=== PATIENT | male | born 1980 | race Caucasian/White ===

== ENCOUNTER 2016-07-08 18:27 | Inpatient (IN) | payer BC, OTHER ==
[~2016-07-08] VITALS: Ht 177.8 cm; Wt 108.9 kg
--- NOTE | ~2016-07-08 | EKG ---
[address] [address] ELECTROCARDIOGRAM REPORT Name: PLACIDO NASCIMENTO Room #: 208-P ADM IN M.R.#: [id number] Admission: 07/08/16 Attend Phys: Kuldeep Davis MD, Discharge: Date of : 80 Report #: [id number] THIS REPORT FOR: //name// [facility] Test Date: 2016-07-09 Test Time: 02:22:15 Pat Name: PLACIDO NASCIMENTO Department: Room: 208 P Gender: M Sports Centre Manager: TK : 1980 Requested By: Kuldeep Davis Order Number: [id number] MD: Mikel Argueta Measurements Intervals [place] Rate: 77 P: 25 [place]: 162 QRS: 22 QRSD: 90 T: 10 QT: 379 QTc: 429 Interpretive Statements Sinus rhythm No significant abnormality Compared to ECG 07/08/2016 21:42:14 Sinus tachycardia no longer present Electronically Signed On 07-09-2016 8:02:45 SAMPLE PASTER by Mikel Argueta [email or web address] <ELECTRONICALLY SIGNED> By: Mikel Argueta MD, [facility] 07/09/16801 1 1 Mikel Argueta MD, FAC /EPI
--- NOTE | ~2016-07-08 | D ---
[facility] [place] [address] DISCHARGE SUMMARY Name: IPLYPLACIDO SELLERS Room #: 208-P [facility] IN M.R.#: [id number] Admission: 07/08/16 Attend Phys: Kuldeep Davis MD, Discharge: 07/10/16 Date of : 80 Report #: [id number] THIS REPORT FOR: //name// CC: NORMA physician/PCP Kuldeep Davis [facility] COURSE: The patient is a 36-year-old male who came in with sudden onset of chest pain, intermittent for the day of admission. Very intense at times, with some very subtle, but no EKG changes, but a troponin was 4. Subsequently taken to the catheterization lab emergently that night, was found to have what appears to be a spontaneous clot in his proximal LAD. I treated that with initial angiography. The clot had dislodged and went to the mid LAD. I then did multiple mechanical thrombectomy throughout the LAD, even extending down to the apex as the clot propagated. Eventually with clot extraction and IC verapamil, I was able to restore completely normal flow into this what appears to be a normal vessel. It wrapped around LAD. The circumflex was nondominant, large and free of disease and the dominant right was large and free of disease. LV function was preserved. He has done well. Repeat troponin was 8. The hypercoag panel was pending. He has been seen by hematology. Obviously, we were very concerned about a clotting disorder. He was initially treated with heparin and Integrilin and now on an aspirin and Lovenox, converting to Coumadin. He may eventually be a candidate for a novel agent depending on the findings, no anticardiolipin antibody abnormality, we could even consider a novel agent, but we will not have results of the hypercoag panel for a week. Dr. William has ordered CT scans looking for any occult malignancy, although we certainly do not have the history for this. We will await those and then discharge later today on Lovenox and Coumadin until he is therapeutic overlapping for 2 days. DISCHARGE INSTRUCTIONS: Atorvastatin 40, Toprol 25, lisinopril 10, enoxaparin 100 b.i.d. until he is therapeutic for 48 hours with INR greater than 2 and Protonix 40. No lifting for 48 hours. No lying in tub, Jacuzzi or Wol[place] for a week. He is to follow up in my office in 6-8 weeks. He does not have a primary care physician and we will give him some recommendations. DISCHARGE DIAGNOSES: 1. Myocardial infarction secondary to a spontaneous left anterior descending thrombus formation. 2. Hypercholesterolemia. 3. History of borderline hypertension, untreated. 4. Ruling out hypercoagulation disorder. Further recommendations after Dr. William reviews the CT scans. If no findings, we will discharge to home as noted above. He will call with any issues or recurrent pain. He will avoid any sort of estrogen replacement or tobacco. He has been on none of this. He denies any anabolic steroid use. He denies any illicit drug use. [address] [address] DISCHARGE SUMMARY Name: PILYPLACIDO SELLERS Room #: 208-P [facility] IN M.R.#: [id number] Admission: 07/08/16 Attend Phys: Kuldeep Davis MD, Discharge: 07/10/16 Date of : 80 Report #: [id number] Low-fat, low-sodium, cholesterol diet. Regular aerobic activity. <ELECTRONICALLY SIGNED> By: Kuldeep Davis MD, FACC 07/11/16 1233 1000 1250 Kuldeep Davis MD, FACC /nt
--- NOTE | ~2016-07-08 | CATHLAB ---
[facility] [address] [place] [address] INVASIVE PROCEDURE REPORT Name: IPLYPLACIDO Room #: 208-P [facility] IN M.R.#: [id number] Admission: 07/08/16 Attend Phys: Kuldeep Davis, Discharge: 07/10/16 Date of : 80 Date of Service: 07/09/16 0004 Report #: [id number] THIS REPORT FOR: //name// CC: NORMA physician/PCP Kuldeep Davis PROCEDURES: Coronary angiography, left ventriculography, thrombectomy removal of the LAD mid and distal vessel. DESCRIPTION OF PROCEDURE: The patient brought to the catheterization lab with recurrent severe chest pain and pressure, with subtle EKG changes and troponin of 4. Despite heparin, nitroglycerin, morphine, still having recurrent pain, without significant current of injury. Difficulty with the arch, so utilized a JR4 to cross and exchanges were made over the wire. The right coronary artery is widely patent. FL4 for the left coronary system. Multiple views and obliques were taken, initially not clear evidence of a clot, but then more with injections. There was evidence of a large proximal LAD thrombus and it initially and intermittently became somewhat flow limiting. Another injection ensued and this clot spontaneously appeared to propagate to the mid distal LAD with total flush occlusion. I then utilized a 4.0 EBU guide and additional heparin and Integrilin bolus Integrilin drip. I then placed a 6-[address] down to the mid LAD and multiple passes were made, filling 2 tubes, with marked improvement in this flow within only the distal. This wraparound LAD was patent to just at the apex where it wrapped. I then elected to proceed further with a thrombectomy device and returned with the device after it had been removed and did further manual thrombectomy aspiration at the apex of this LAD. I then utilized IC verapamil prior and after this procedure. I was able to completely restore flow into the entire LAD as it wrapped around, without evidence of any residual thrombus. I did a pigtail for the ventriculogram and supravalvular aortogram. It looks like mild aortic dilatation, but I do not see any evidence of disruption or other clot or etiology of the clot. The patient had resolution of chest pain and some subtle EKG changes. A Mynx closure was utilized, without hematoma formation. IV Lopressor was also given initially. The patient is transferred back to CCU in guarded condition, but improved. Improvement in the EKG is noted. HEMODYNAMICS: Aortic 138/100, LV 117/12. IMPRESSION: 1. Successful aborted anterior infarct with evidence of large proximal left anterior descending thrombus, which had propagated during angiography to a mid left anterior descending occlusion. Successfully mechanically thrombectomized and then further thrombectomy at the apex, where there was further distal clot. There was gradual removal of significant clot formation in the filter. The circumflex is widely patent. The right coronary artery is a large, dominant vessel and widely patent. Normal left ventricular size. Left ventricular function subtle. Anterior wall ejection fraction is 50%. [facility] [address] [place] [address] INVASIVE PROCEDURE REPORT Name: PLACIDO NASCIMENTO Room #: 208-P DIS IN M.R.#: [id number] Admission: 07/08/16 Attend Phys: Kuldeep Davis, Discharge: 07/10/16 Date of : 80 Date of Service: 07/09/16 0004 Report #: [id number] 2. Supravalvular aortogram reveals aortic insufficiency, but this may be catheter induced. Mild aortic root dilatation, but no evidence of any interval disruption. RECOMMENDATIONS AND PLAN: We will continue with nitroglycerin and Integrilin drips, to the CCU in guarded condition. We will send laboratory work, hypercoag panel in the a.m. Continue aggressive statin therapy and will need hematology consult with Dr. William in the morning. We will need to give consideration to long-term anticoagulation, either warfarin or possibly direct thrombin inhibitor. Pradaxa could be an option or the factor X inhibitors. We will have further consultation with hematology, hypercoag panel. Obviously, no clear indication for why he would develop a spontaneous clot in the large LAD, which otherwise has no apparent disease. There were no inciting medications, drugs, alcohol, etc. We will have further recommendations per his clinical course. <ELECTRONICALLY SIGNED> By: Kuldeep Davis MD, [facility] 07/11/16 1233 0004 0157 Kuldeep Davis MD, FACC /nt
--- NOTE | ~2016-07-08 | EKG ---
[address] [address] ELECTROCARDIOGRAM REPORT Name: PLACIDO NASCIMENTO Room #: 208-P ADM IN M.R.#: [id number] Admission: 07/08/16 Attend Phys: Kuldeep Davis MD, Discharge: Date of : 80 Report #: [id number] THIS REPORT FOR: //name// [facility] Test Date: 2016-07-08 Test Time: 22:08:10 Pat Name: PLACIDO NASCIMENTO Department: Room: 208 P Gender: M Clinical Resource Director: TK : 1980 Requested By: Kuldeep Davis Order Number: [id number] MD: Mikel Argueta Measurements Intervals [place] Rate: 77 P: 33 PA: 162 QRS: 9 QRSD: 88 T: 5 QT: 385 QTc: 436 Interpretive Statements Sinus rhythm No significant abnormality Compared to ECG 07/08/2016 18:30:26 Sinus tachycardia no longer present Electronically Signed On 07-09-2016 8:02:23 CREW MEMBER by Mikel Argueta [email or web address] <ELECTRONICALLY SIGNED> By: Mikel Argueta MD, [facility] 07/09/16801 07 07 Mikel Argueta MD, [facility] /EPI
--- NOTE | ~2016-07-08 | HC ---
[facility] [place] [address] CONSULTATION Name: PILYPLACIDO SELLERS Room #: 208-P ADM IN M.R.#: [id number] Admission: 07/08/16 Attend Phys: Kuldeep Davis MD, Discharge: Date of : 80 Report #: [id number] THIS REPORT FOR: //name// CC: NORMA physician/PCP Kuldeep Davis MD [facility] DATE OF SERVICE: 07/09/2016 REASON FOR CONSULTATION: Unprovoked thrombus in left anterior descending coronary artery. 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 In subsequent evaluation in the hospital, he was found on coronary angiogram to have fairly normal coronary arteries but did have a thrombus which has not been lysed and had an infarct aborted. The patient previous to that had not been using any hormones, any street drugs or had not had any unusual infection or trauma, weight change, diarrhea or constipation. He does mention that maybe several months ago he was at a clinic related to his work and they perhaps found his thyroid is a little bit abnormal, did some other tests and maybe suggested there is something autoimmune going on, though I may not be understanding this correctly and they suggested that he follows up with someone in 6 months. His will bring in these labs. PAST MEDICAL HISTORY: Notable for borderline hypertension and also an appendectomy. FAMILY HISTORY: There is some premature coronary artery disease on the mother and father's side, but it sounds like it is atherosclerotic not clots. No young age diagnosis of other cancers or strokes or DVTs or pulmonary emboli. SOCIAL HISTORY: He is to his , Nia; they have I think she said a 7-month-old and a 2 year, but there may be a 3-month-old and a 7-month-old. Minimal alcohol, no tobacco, no street drugs. Also note here that his other studies did have a fairly normal CBC and BMP. We would need to check LFTs, but note a hypercoag panel is pending. We will add a beta-2 glycoprotein and immunofixation, CAT scans. MEDICATIONS: Here in the hospital currently include metoprolol 25 daily, Lovenox 100 b.i.d., docusate 100 b.i.d., atorvastatin 80 mg daily, aspirin 325 daily, zolpidem 5 at bedtime p.r.n., p.r.n. Zofran, p.r.n. hydrocodone, p.r.n. Tylenol, p.r.n. nitroglycerin. He also will be finishing his Integrilin in the near future. [address] [address] CONSULTATION Name: PLACIDO NASCIMENTO Room #: 208-P [facility] IN M.R.#: [id number] Admission: 07/08/16 Attend Phys: Kuldeep Davis MD, Discharge: Date of : 80 Report #: [id number] Baseline coags here were normal. PHYSICAL EXAMINATION: GENERAL: The patient appears his stated age. VITAL SIGNS: Height is 5 feet 10 inches which is 177.8 cm, weight 240 pounds which is 108.86 kg, blood pressure is 127/90, O2 sat 95, respirations 16, pulse 85, temperature 98.1. MOOD: He is alert and pleasant, slightly quiet despite all the attention, multiple family members in the room. NEUROLOGIC: Face is symmetrical and moving all extremities. Speech pattern is normal. Oropharynx clear. LUNGS: Clear with symmetric unlabored respiration. HEART: Regular rate. LYMPHATICS: No enlarged lymph nodes in the supraclavicular, cervical, axillary or inguinal region. ABDOMEN: Soft, slightly obese. No organomegaly. Nontender. EXTREMITIES: Without clubbing, cyanosis or edema. DISCUSSION: Discussed with family, , mother and most of his family members that we are seeing and trying to look for things that may have contributed to his blood clot in his heart. We talked about doing a CAT scan of the chest, abdomen and pelvis to look for occult malignancy. We also talked about the rheumatologic tests that are pending. We will also add a beta-2 glycoprotein as well as immunofixation. We said that some of these tests may require repeat testing and see if they are persistent. Some of them also may be hereditary and other family members might need to be checked. We also talked about choice of anticoagulant at this time since this might be a lupus anticoagulant. I would suggest Lovenox and then something like Coumadin as compared to a novel oral anticoagulant. If on the other hand over time these hypercoaguable tests come back negative, we might be able to consider novel oral anticoagulant. With regards to duration, I would probably consider a fairly custodial at least for a year and maybe even consider lifelong at this point given the severe nature of a clot in this location and I am aware that even if this clot dissipates or resolves, there may be some coronary abnormality that might predispose and they have a clot here. We also had talked with Dr. Davis about really not a VSD and ASD and he has an echocardiogram planned later today. ASSESSMENT AND PLAN: 1. Coronary thrombus in the left anterior descending, unprovoked. Await blood tests and CAT scan and echocardiogram. I agree with use of Lovenox after Integrilin and also use of Coumadin. 2. Thyroid abnormality question. will bring in labs so we can see if this warrants further investigation. 3. Hypertension. Metoprolol and other medications. [facility] [address] [place] [address] CONSULTATION Name: PILYPLACIDO Room #: 208-P [facility] IN M.R.#: [id number] Admission: 07/08/16 Attend Phys: Kuldeep Davis MD, Discharge: Date of : 80 Report #: [id number] 4. History of premature coronary artery disease and others. We will defer statins and other drugs to cardiology. We will follow with you. <ELECTRONICALLY SIGNED> By: Jj William MD 07/09/16 2108 1034 1109 Jj William MD /nt
--- NOTE | ~2016-07-08 | 2DMMODE ---
[facility] [place] [address] 2 D/M-MODE ECHOCARDIOGRAM Name: PLACIDO NASCIMENTO Room #: 208-P [facility] IN .R.#: [id number] Admission: 07/08/16 Attend Phys: Kuldeep Davis, Discharge: Date of : 80 Date of Service: 07/09/16 1433 Report #: [id number] THIS REPORT FOR: //name// Transthoracic Echocardiography Ordering physician: Lurdes Figueredo Referring physician: Colorist: MARILEE Cam Indications/History: HTN, Chest pain, HLP. BP: 121 / HR: 74bpm Height: 70in Weight: 239.5lb 81 Study data: M-mode, complete 2D, complete spectral Doppler, and color Doppler. Location: Echo laboratory. Routine. Image quality was good. 2D measurements Normal Normal LVID ED 52.3mm 36-57 IVS ED 10.4mm 6-11 LVID ES 33.9mm 23-40 LVPW ED 10.1mm 6-11 LA volume 27ml/m2 16-28 AoRoot diam 31.1mm 21-37 index ED LVOT diameter 23mm 18-23 Findings: Left ventricle: The cavity size was normal. Wall thickness was normal. Systolic function was normal. The estimated ejection fraction was in the range of 55% to 60%. Wall motion was normal. Right ventricle: The cavity size was normal. Systolic function was normal. Right atrium: The atrium was normal in size. Left atrium: The atrium was normal in size. Volume index: 27ml/m2 (S). Aortic valve: Structurally normal valve. Trileaflet. Doppler: There was no stenosis. No regurgitation. Peak velocity: 144.9cm/s (S). [facility] [address] [place] [address] 2 D/M-MODE ECHOCARDIOGRAM Name: PLACIDO NASCIMENTO Room #: 208-P [facility] IN M.R.#: [id number] Admission: 07/08/16 Attend Phys: Kuldeep Davis, Discharge: Date of : 80 Date of Service: 07/09/16 1433 Report #: [id number] Mitral valve: Structurally normal valve. Doppler: There was no evidence for stenosis. No regurgitation. Peak E-wave velocity: 85cm/s. Peak gradient: 2.9mm Hg (D). Peak A-wave velocity: 70.1cm/s. Tricuspid valve: Structurally normal valve. Doppler: There was no evidence for stenosis. No regurgitation. Regurgitant peak velocity: 284.8cm/s. Peak RV-RA gradient: 32mm Hg (S). Pulmonic valve: Structurally normal valve. Doppler: There was no evidence for stenosis. No regurgitation. Pericardium: There was no pericardial effusion. Aorta: Aortic root: The aortic root was normal in size. Pulmonary artery: Pressure could not be reliably determined due to minimal or absent tricuspid insufficiency jet, but pulmonary hypertension was not suggested. Diastolic function: Normal diastolic function. Systemic veins: Inferior vena cava: The vessel was normal in size; the respirophasic diameter changes were in the normal range (= 50%). Conclusions 1. Left ventricle: Systolic function was normal. The estimated ejection fraction was in the range of 55% to 60%. Wall motion was normal. Normal diastolic function. 2. Aortic valve: Structurally normal valve. Trileaflet. There was no stenosis. No regurgitation. 3. Mitral valve: Structurally normal valve. No regurgitation. 4. Pericardium, extracardiac: There was no pericardial effusion. <ELECTRONICALLY SIGNED> By: Mikel Argueta MD, [facility] 07/09/16 1858 1433 57 Mikel Argueta MD, [facility] /[email or web address]
--- NOTE | ~2016-07-08 | EKG ---
[place] [address] [facility] [place] [address] ELECTROCARDIOGRAM REPORT Name: PLACIDO NASCIMENTO Room #: 208-P ADM IN M.R.#: [id number] Admission: 07/08/16 Attend Phys: Kuldeep Davis MD, Discharge: Date of : 80 Report #: [id number] THIS REPORT FOR: //name// [facility] ED Test Date: 2016-07-08 Test Time: 19:21:18 Pat Name: PLACIDO NASCIMENTO Department: Room: 208 Gender: M Implementation Advisor: Branden KWAN : 1980 Requested By: Clotilde Ness Order Number: [id number] MD: Mikel Argueta Measurements Intervals [place] Rate: 120 P: 22 [place]: 150 QRS: 17 QRSD: 79 T: -2 QT: 320 QTc: 453 Interpretive Statements Sinus tachycardia Otherwise no significant abnormality Compared to ECG 07/08/2016 18:30:26 no significant change was found Electronically Signed On 07-09-2016 8:01:23 RN REVIEW by Mikel Argueta [email or web address] <ELECTRONICALLY SIGNED> By: Mikel Argueta MD, [facility] 07/09/16 0801 20 20 Mikel Argueta MD, [facility] /EPI
--- NOTE | ~2016-07-08 | EKG ---
[address] [employer] [place] [address] ELECTROCARDIOGRAM REPORT Name: PLACIDO NASCIMENTO Room #: 208-P ADM IN M.R.#: [id number] Admission: 07/08/16 Attend Phys: Kuldeep Davis MD, Discharge: Date of : 80 Report #: [id number] THIS REPORT FOR: //name// [facility] Test Date: 2016-07-08 Test Time: 21:42:14 Pat Name: PLACIDO NASCIMENTO Department: Room: 208 P Gender: M Bridal Gown Fitter: Yudelka EUCEDA : 1980 Requested By: Kuldeep Davis Order Number: [id number] MD: Mikel Argueta Measurements Intervals [place] Rate: 100 P: 25 DC: 158 QRS: 3 QRSD: 84 T: 1 QT: 333 QTc: 430 Interpretive Statements Sinus tachycardia Otherwise normal tracing no previous ECGs available for comparison Electronically Signed On 07-09-2016 8:02:01 TOLL LINEMAN by Mikel Argueta [email or web address] <ELECTRONICALLY SIGNED> By: Mikel Argueta MD, [facility] 07/09/16 0802 41 41 Mikel Argueta MD, FACC /EPI
--- NOTE | ~2016-07-08 | EKG ---
[place] [address] [place] [address] ELECTROCARDIOGRAM REPORT Name: PLACIDO NASCIMENTO Room #: 208-P ADM IN M.R.#: [id number] Admission: 07/08/16 Attend Phys: Kuldeep Davis MD, Discharge: Date of : [birth year] Report #: [id number] THIS REPORT FOR: //name// [facility] Test Date: 2016-07-09 Test Time: 07:43:37 Pat Name: PLACIDO NASCIMENTO Department: Room: 208 P Gender: M Bar Tacker: jimmie : 1980 Requested By: Kuldeep Davis Order Number: [id number] MD: Mikel Argueta Measurements Intervals [place] Rate: 85 P: 26 [place]: 153 QRS: 10 QRSD: 83 T: -2 QT: 334 QTc: 398 Interpretive Statements Sinus rhythm No significant abnormality Compared to ECG 07/08/2016 21:42:14 No significant change was found Electronically Signed On 07-09-2016 8:07:10 FRAME ALIGNER by Mikel Argueta [email or web address] <ELECTRONICALLY SIGNED> By: Mikel Argueta MD, [facility] 07/09/16 0807 2 Mikel Argueta MD, [facility] /EPI
--- NOTE | ~2016-07-08 | EKG ---
[address] [place] [address] ELECTROCARDIOGRAM REPORT Name: PLACIDO NASCIMENTO Room #: 208-P ADM IN M.R.#: [id number] Admission: 07/08/16 Attend Phys: Kuldeep Davis MD, Discharge: Date of : 80 Report #: [id number] THIS REPORT FOR: //name// [facility] Test Date: 2016-07-10 Test Time: 06:42:52 Pat Name: PLACIDO NASCIMENTO Department: Room: 208 P Gender: M Urologist Md: jimmie : 1980 Requested By: Kuldeep Davis Order Number: [id number] MD: Mikel Argueta Measurements Intervals [place] Rate: 79 P: 39 [place]: 137 QRS: 27 QRSD: 87 T: -14 QT: 377 QTc: 433 Interpretive Statements Sinus rhythm Borderline T abnormalities Compared to ECG 07/09/2016 07:43:37 T-wave abnormality now present Electronically Signed On 07-10-2016 9:03:29 COMMERCIAL INTERN by Mikel Argueta [email or web address] <ELECTRONICALLY SIGNED> By: Mikel Argueta MD, [facility] 07/10/16902 1 Mikel Argueta MD, [facility] /EPI
--- NOTE | ~2016-07-08 | H ---
[facility] [place] [address] HISTORY AND PHYSICAL Name: PLACIDO NASCIMENTO Room #: 208-P [facility] IN M.R.#: [id number] Admission: 07/08/16 Attend Phys: Kuldeep Davis MD, Discharge: 07/10/16 Date of : 80 Report #: [id number] THIS REPORT FOR: //name// CC: [facility] physician/PCP Kuldeep Davis DATE OF SERVICE: 07/08/2016 HISTORY OF PRESENT ILLNESS: This is a 36-year-old male who comes in with some onset of chest pain. Chest pain started at work at approximately noon. He works at [employer]. He is having a desk job. This did wax and wane, became worse early afternoon, discomfort on and off. It radiated into the jaw and the back at times. It became somewhat diaphoretic, was relieved initially with nitro, heparin and morphine, GI cocktail, was admitted to the CCU and then had some recurrent pain. He takes no medications. A little bit of cholesterol. He has had high blood pressure. We do not treat it. PAST MEDICAL HISTORY: Positive for some borderline hypertension, no longer treated and cholesterol borderline elevated and appendectomy. FAMILY HISTORY: Strongly positive for premature coronary artery disease including mother and father's side, both in their 50s with premature disease. SOCIAL HISTORY: He is . Two children. [employer]akes [employer]. Minimal alcohol. No tobacco. No illicit drugs. He has been on no cold medications or nasals sprays. REVIEW OF SYSTEMS: Negative except for the nausea, vomiting and diarrhea for 2 days last week with 2 doses of Imodium last week, otherwise negative. PHYSICAL EXAMINATION: VITAL SIGNS: Blood pressure 140/90. Pulse is 90s. HEENT: Eyes reveal xanthelasmas. Pharynx is clear. NECK: Shows preserved upstrokes without JVD or bruits. LUNGS: Lungs are clear. CARDIOVASCULAR: Regular rate and rhythm. S1, S2 without murmur or gallop. ABDOMEN: Soft. No HSM or abdominal bruit. EXTREMITIES: Revealed no edema. Distal pulses were intact. NEUROLOGIC: Nonfocal. SKIN: Warm and dry without xanthoma or ulcer. MUSCULOSKELETAL: No gross joint deformity. ASSESSMENT: Spontaneous coronary thrombus like white thrombus formation. RECOMMENDATIONS AND PLAN: We will proceed to the catheterization lab, [address] [address] HISTORY AND PHYSICAL Name: PLACIDO NASCIMENTO Room #: 208-P [facility] IN M.R.#: [id number] Admission: 07/08/16 Attend Phys: Kuldeep Davis MD, Discharge: 07/10/16 Date of : 80 Report #: [id number] his anatomy. Risks, benefits and alternatives had been discussed. We will continue heparin, nitro drips, aspirin and statin. <ELECTRONICALLY SIGNED> By: Kuldeep Davis MD, [facility] 07/11/16 [id number] [id number] Kuldeep Davis MD, FACC /nt
--- NOTE | ~2016-07-08 | EKG ---
[address] [place] [address] ELECTROCARDIOGRAM REPORT Name: PLACIDO NASCIMENTO Room #: 208-P [facility] IN M.R.#: [id number] Admission: 07/08/16 Attend Phys: Kuldeep Davis MD, Discharge: Date of : 80 Report #: [id number] THIS REPORT FOR: //name// [facility] ED Test Date: 2016-07-08 Test Time: 18:30:26 Pat Name: PLACIDO NASCIMENTO Department: Room: 208 Gender: M Hands Assembler: silas : 1980 Requested By: Clotilde Ness Order Number: [id number] MD: Mikel Argueta Measurements Intervals [place] Rate: 101 P: 37 OK: 153 QRS: 10 QRSD: 86 T: 6 QT: 345 QTc: 448 Interpretive Statements Sinus tachycardia Otherwise no significant abnormality No previous ECG available for comparison Electronically Signed On 07-09-2016 8:00:06 [employer] MACHINIST 2ND SHIFT by Mikel Argueta [email or web address] <ELECTRONICALLY SIGNED> By: Mikel Argueta MD, [facility] 07/09/16 0800 1830 1830 Mikel Argueta MD, FACC /EPI
[~2016-07-08 18:27] MED LIST: PRILOSEC 20 MG20 MG PO; PRINIVIL10 MG PO; ZOCOR40 MG PO
[2016-07-08 18:28] VITALS: BP 151/97
[2016-07-08 18:53] LABS: ABSOLUTE NEUTROPHILS 7.3 thou/uL (1.4-8.2); BASOPHILS 0.6 % (0.0-2.0); HEMATOCRIT 42.4 % (42.0-52.0); HEMOGLOBIN 14.9 gm/dL (14.0-18.0); LYMPHOCYTES 26.3 % (24.0-44.0); MCH 28.6 pg (26.0-34.0); MCHC 35.2 % (28.0-37.0); MCV 81.1 fL (80.0-100.0); MONOCYTES 5.5 % (1.0-8.0); PLATELET COUNT 286 thou/uL (150-400); POLYS 66.6 % (36.0-66.0); RBC 5.22 mil/uL (4.50-6.00); RDW 12.1 % (10.5-14.5)
[2016-07-08 18:55] LABS: MANUAL DIFF NO
[2016-07-08 19:05] LABS: CALCIUM 9.5 mg/dL (8.5-10.1); POTASSIUM 3.7 mmol/L (3.5-5.1)
[2016-07-08 19:16] LABS: TROPONIN-I 4.35 ng/mL (<0.04-0.07)
[2016-07-08 19:37] LABS: APTT 27.5 Seconds (24.5-32.8)
[2016-07-08 20:32] LABS: AMP/METHAMP Negative (Negative); BARBITURATES Negative (Negative); BENZODIAZEPINES Negative (Negative); COCAINE Negative (Negative); METHADONE Negative (Negative); OPIATES Negative (Negative); PCP Negative (Negative); THC Negative (Negative)
[2016-07-08 21:31] VITALS: BP 127/90
[2016-07-08 21:36] VITALS: BP 118/79
[2016-07-09] MEDS ORDERED: IBUPROFEN 200200 M1 PO (01:58)
[2016-07-09 07:52] LABS: CALCIUM 8.9 mg/dL (8.5-10.1); CREATININE 0.9 mg/dL (0.6-1.3); POTASSIUM 4.1 mmol/L (3.5-5.1)
[2016-07-09 07:53] LABS: HEMATOCRIT 39.6 % (42.0-52.0); HEMOGLOBIN 13.5 gm/dL (14.0-18.0); MCV 82.3 fL (80.0-100.0); RBC 4.81 mil/uL (4.50-6.00); RDW 11.9 % (10.5-14.5); WBC 7.9 thou/uL (4.0-11.0)
[2016-07-09 07:55] LABS: TROPONIN-I 8.07 ng/mL (<0.04-0.07)
[2016-07-09 13:45] VITALS: BP 121/81
[2016-07-09 15:39] LABS: PROTIME 9.7 Seconds (9.3-11.4)
[2016-07-09 16:55] VITALS: BP 119/68
[2016-07-09 20:57] VITALS: BP 127/81
[2016-07-10 02:58] VITALS: BP 109/59
[2016-07-10 03:16] LABS: HEMATOCRIT 38.4 % (42.0-52.0); HEMOGLOBIN 12.8 gm/dL (14.0-18.0); MCH 27.9 pg (26.0-34.0); MCHC 33.4 % (28.0-37.0); MCV 83.6 fL (80.0-100.0); RBC 4.59 mil/uL (4.50-6.00); WBC 8.2 thou/uL (4.0-11.0)
[2016-07-10 03:28] LABS: PROTIME 10.3 Seconds (9.3-11.4)
[2016-07-10 03:39] LABS: ANION GAP 8 mmol/L (7-16); BUN 14 mg/dL (7-18); CALCIUM 8.9 mg/dL (8.5-10.1); CHLORIDE 105 mmol/L (98-107); CHOLESTEROL 115 mg/dL (<200); CO2 27 mmol/L (21-32); CREATININE 0.9 mg/dL (0.6-1.3); GLUCOSE 93 mg/dL (70-99); HDL CHOLESTEROL 32 mg/dL (>40); LDL CHOLESTEROL 64 mg/dL (<100); POTASSIUM 3.7 mmol/L (3.5-5.1); SODIUM 140 mmol/L (136-145); TC:HDL 3.6 Ratio (Not establshd); TRIGLYCERIDE 97 mg/dL (<150); VLDL 19 mg/dL (<40)
[2016-07-10 03:43] LABS: ALBUMIN 2.9 g/dL (3.4-5.0); DIRECT BILIRUBIN 0.1 mg/dL (<0.1-0.3); SERUM ASSESSMENT Clear; TOTAL BILIRUBIN 0.3 mg/dL (<0.1-1.0); TOTAL PROTEIN 6.4 g/dL (6.4-8.2); TROPONIN-I 8.19 ng/mL (<0.04-0.07)
[2016-07-10 07:15] VITALS: BP 123/77
[2016-07-10] MEDS ORDERED: ATORVASTATIN CA40 MG PO (08:05)
[2016-07-10] MEDS ORDERED: NEXIUM40 MG PO (08:05)
[2016-07-10] MEDS ORDERED: METOPROLOL SUCC25 M1 PO (08:05)
[2016-07-10] MEDS ORDERED: PRILOSEC 20 MG20 MG PO (08:05)
[2016-07-10] MEDS ORDERED: PRINIVIL10 MG PO (08:05)
[2016-07-10] MEDS ORDERED: ENOXAPARIN100 MG/11 SUBQ (08:05)
[2016-07-10] MEDS ORDERED: COUMADIN 5 MG TA5 M1 PO (08:05)
[2016-07-10] MEDS ORDERED: ASPIRIN325 PO (08:05)
[2016-07-10 12:14] LABS: IgA 161 mg/dL (90-386); IgG 653 mg/dL (700-1600); IgM 81 mg/dL (20-172)
[2016-07-10 12:15] VITALS: BP 117/75
[2016-07-10 12:49] VITALS: BP 117/75
[2016-07-10 21:07] LABS: ANTITHROMBIN III 117 % (75-135); DIL. RUSSELL VIPER VENOM 45.1 sec (0.0-44.0)
[2016-07-12 04:11] LABS: BETA-2 GLYCOPROTEIN IGG < 9 (0-20); BETA-2 GLYCOPROTEIN IGM < 9 (0-32)
== END 2016-07-10 13:39 | disposition home or self-care (01) | DRG 251 ==
LOC: ER 18:27 → EROBS 20:26 → 2N 20:26
PROVIDERS: Emergency Medicine; Internal Medicine Cardiovascular Disease; Internal Medicine Hematology & Oncology; Nurse Practitioner Gerontology
PROC: B310YZZ Fluoroscopy of Thoracic Aorta using Other Contrast (ICD-10-PCS; principal; 2016-07-08)
PROC: B215YZZ Fluoroscopy of Left Heart using Other Contrast (ICD-10-PCS; principal; 2016-07-08)
PROC: B2111ZZ Fluoroscopy of Multiple Coronary Arteries using Low Osmolar Contrast (ICD-10-PCS; principal; 2016-07-08)
PROC: 02C03ZZ Extirpation of Matter from Coronary Artery, One Artery, Percutaneous Approach (ICD-10-PCS; principal; 2016-07-08)
PROC: 4A023N7 Measurement of Cardiac Sampling and Pressure, Left Heart, Percutaneous Approach (ICD-10-PCS; principal; 2016-07-08)
DX: I21.3 ST elevation (STEMI) myocardial infarction of unspecified site (principal); I10 Essential (primary) hypertension; G43.909 Migraine, unspecified, not intractable, without status migrainosus; K21.9 Gastro-esophageal reflux disease without esophagitis; E78.00 Pure hypercholesterolemia, unspecified; E78.5 Hyperlipidemia, unspecified; I25.10 Atherosclerotic heart disease of native coronary artery without angina pectoris; Z90.49 Acquired absence of other specified parts of digestive tract; Z82.49 Family history of ischemic heart disease and other diseases of the circulatory system; Z79.82 Long term (current) use of aspirin; Z79.899 Other long term (current) drug therapy; Z98.61 Coronary angioplasty status
CPT/HCPCS: 10081